=== PATIENT | male | born 2000 | race Caucasian/White ===

== ENCOUNTER 2019-04-05 23:00 | Emergency (ER) | payer OTHER ==
[~2019-04-05] VITALS: Ht 185.4 cm; Wt 122.5 kg
--- NOTE | 2019-04-05 23:04 | NUR ---
PT TAKEN TO BED 5
[2019-04-05 23:05] VITALS: BP 141/87
--- NOTE | 2019-04-05 23:20 | NUR ---
18 Y/O MALE PRESENTS TO ED, C/O LEFT ABDOMINAL PAIN. PT STATES BEING TACKLED DURING FOOTBALL GAME AT APPROXIMATELY 1500 TODAY. PAIN WORSENED AROUND 1900 01/11; TOOK 3 TABS OF MOTRIN UNKNOWN DOSAGE; INEFFECTIVE. ABD IS SOFT, NONTENDER. BS, ACTIVE X4 QUADRANTS. PT DENIES ANY LOC DURING TRAUMA, C/O DIZZINESS AND NAUSEA, NO VOMITING. PT ABLE TO AMBULATE WITH SLOW STEADY GAIT. ERMD AWARE. WILL CONTINUE TO MONITOR.
--- NOTE | 2019-04-05 23:36 | NUR ---
Dr. Bullock examining patient.
[2019-04-05] MEDS ORDERED: ONDANSETRON 4 MG/2 ML VIAL IVP ONE (23:40)
[2019-04-05] MEDS ORDERED: NACL 0.9% 1,000 ML IV ONE (23:40)
[2019-04-05] MEDS ORDERED: MORPHINE SULFATE 4 MG/ML SYR IVP ONE (23:40)
[2019-04-06 00:07] LABS: BASOPHILS % (AUTO) 0.3 % (0.0-2.0); EOSINOPHILS % (AUTO) 0.1 % (0.0-4.0); HEMATOCRIT 40.5 % (36-52); HEMOGLOBIN 13.4 g/dL (12.0-18.0); LYMPHOCYTES # (AUTO) 1.7 K/uL (2.0-11.5); LYMPHOCYTES % (AUTO) 11.8 % (20.5-51.1); MEAN CORPUSCULAR HEMOGLOBIN 29 pg (27-31); MEAN CORPUSCULAR HGB CONC 33 g/dL (33-37); MEAN CORPUSCULAR VOLUME 86.5 fL (80-94); MONOCYTES % (AUTO) 6.9 % (1.7-9.3); NEUTROPHILS # (AUTO) 11.4 K/uL (1.8-7.7); PLATELET COUNT (AUTO) 213 K/uL (140-450); RED BLOOD CELL COUNT(AUTO) 4.68 MIL/uL (4.20-6.10); RED CELL DISTRIBUTION WIDTH 12.9 % (11.6-13.7); WHITE BLOOD COUNT (AUTO) 14.1 K/uL (4.5-11.0)
[2019-04-06 00:17] LABS: NEUTROPHILS % (AUTO) 80.9 % (42.2-75.2)
[2019-04-06 00:18] LABS: ANION GAP 15.8 (8-16); CREATININE 1.1 mg/dL (0.7-1.3); POTASSIUM 3.8 mmol/L (3.5-5.1)
[2019-04-06 00:23] LABS: TOTAL BILIRUBIN 0.5 mg/dL (0.0-1.0)
--- NOTE | 2019-04-06 00:36 | NUR ---
PT TAKEN TO CT
[2019-04-06 00:49] LABS: APPEARANCE,URINE CLEAR (CLEAR); BILIRUBIN,URINE NEGATIVE (NEGATIVE); BLOOD, URINE 3+ (NEGATIVE); COLOR,URINE YELLOW (YELLOW); LEUKOCYTE ESTERASE ,URINE NEGATIVE (NEGATIVE); NITRITE, URINE NEGATIVE (NEGATIVE); PH,URINE 5.5 (5.0-9.0); UGLUCOSE NEGATIVE (NEGATIVE)
--- NOTE | 2019-04-06 00:56 | NUR ---
PT RETURN FROM CT
--- NOTE | 2019-04-06 00:58 | NUR ---
PT C/O OF PAIN 01/11. ERMD MADE AWARE. WILL CONTINUE TO MONITOR.
[2019-04-06] MEDS ORDERED: MORPHINE SULFATE 10 MG/ML VIAL IVP ONE (01:00)
[2019-04-06] MEDS ORDERED: NACL 0.9% 1,000 ML IV ONE (01:10)
[2019-04-06 01:13] LABS: RBC,URINE 20-50 /HPF (0-5)
[2019-04-06 01:14] LABS: WBC,URINE 0-5 /HPF (0-5)
--- NOTE | 2019-04-06 01:37 | NUR ---
CALLED [facility] ED. GAVE REPORT TO DEVORAH ROCHA. ETA FOR [facility] IS 0200.
--- NOTE | 2019-04-06 01:49 | NUR ---
[facility] TRANSPORT AT BEDSIDE
--- NOTE | 2019-04-06 01:51 | NUR ---
PT TAKEN BY [facility] TRAN[facility] TO [facility] ER
[2019-04-06 01:54] VITALS: BP 137/60
--- NOTE | 2019-04-06 01:54 | NUR ---
PT DISCHARGED AND TRANSFERRED TO [facility] ED. PT PICKED UP BY [facility]. REPORT GIVEN TO EMT. PT AT STABLE CONDITION.
== END 2019-04-06 01:54 | disposition short-term general hospital (02) ==
LOC: MED 23:00
DX: S36.899A Unspecified injury of other intra-abdominal organs, initial encounter (principal); F17.200 Nicotine dependence, unspecified, uncomplicated; X58.XXXA Exposure to other specified factors, initial encounter; Y93.61 Activity, american tackle football; Y92.89 Other specified places as the place of occurrence of the external cause; Y99.8 Other external cause status
CPT/HCPCS: 36415; 74177; 80053; 81001; 83690; 85025; 87086; 96374; 96375; 96376; 99285; J2270; J2405; J7030; Q9967